=== PATIENT | female | born 1985 | race Caucasian/White ===

== ENCOUNTER → 2016-11-10 | Outpatient (CLI) | payer BC ==
[2016-11-10 13:10] LABS: CREATININE 0.8 mg/dL (0.5-1.1)
[2016-11-10 13:11] LABS: ESTIMATED GFR (MDRD EQUATION) > 60
== END | disposition disaster alternative care site (69) ==
LOC: GRAD 12:03
PROVIDERS: Specialist
DX: K50.818 Crohn's disease of both small and large intestine with other complication (principal); R93.3 Abnormal findings on diagnostic imaging of other parts of digestive tract
CPT/HCPCS: Q9967